=== PATIENT | male | born 1960 | race Caucasian/White ===

== ENCOUNTER 2022-08-16 13:34 | Emergency (ER) | payer MEDICARE, SELFPAY ==
[2022-08-16 13:35] VITALS: BP 166/97; PULSE 85; RESP 18; TEMP 36.7; O2SAT 99; BMI 26.3
--- NOTE | 2022-08-16 13:47 | XR_ITS ---
FINAL REPORT CLINICAL HISTORY: Left knee pain after a fall fall on 08/13 FINDINGS: LEFT KNEE Three views demonstrate no acute fracture or dislocation. Mild degenerative changes are seen. There is no joint effusion. IMPRESSION: Degenerative change with no acute bony abnormality. Reviewed, Interpreted and Dictated by Tesha Callahan MD Transcribed by Parris Levy Authenticated and [facility]
--- NOTE | 2022-08-16 14:05 | EXP.UTC ---
Discharge Plan Disposition Patient Disposition: Home, Self-Care Condition: Good Prescriptions Prescriptions: No Action gabapentin 600 mg tablet 300 mg PO TID metoprolol succinate 25 mg tablet extended release 24 hr 25 mg PO BID levothyroxine 25 mcg capsule PO buspirone 15 mg tablet 15 mg PO BID pantoprazole [Protonix] [address] for susp in packet 40 mg PO QAM potassium 99 mg tablet 10 meq PO QDAY warfarin [Coumadin] 5 mg tablet 2.5 mg PO QDAY warfarin [Coumadin] 5 mg tablet 5 mg PO QDAY folic acid 1 mg tablet PO 30 Days prednisolone 5 mg (21 tabs) tablets,dose pack PO Referrals Follow up/Referrals: Kamaljit Reese DO [Staff Physician] - See instructions Yeison Malcolm [Primary Care Provider] - See instructions Activity Restrictions/Add. Instructions Additional Instructions/Restrictions: Rest the extremity, Elevate the extremity as tolerated while you are resting. Follow up with Dr. Reese (orthopedics). I put in a referral but you need to call his office and schedule an appointment. Follow up with your regular doctor. GO TO THE ER FOR ANY WORSENING SYMPTOMS Clinical Impressions Clinical Impression: Contusion of knee, left Instructions Patient Instructions: Contusion, DI for Contusion Discharge ED Provider: Charly Beaulieu [facility] General Stated complaint: AO 08/13 fall, left knee pain Mode of Arrival: Ambulatory Source of Information: Patient Limitations: No Limitations Time Seen by Provider: 08/16/22 13:45 HEENT Symptoms (Recalled from RN notes): No Resp Symptoms (Recalled from RN notes): No Skin Symptoms (Recalled from RN notes): Yes MS Symptoms (Recalled from RN notes): Yes Functional Status (Recalled from RN notes): wnl History of Present Illness Provider Complaint: Patient states he fell on his porch 1 week ago and the swelling hasn't gone down. Related Data Home Medications Medication Instructions Recorded Confirmed buspirone 15 mg tablet 15 mg PO BID 03/31/17 gabapentin 600 mg tablet 300 mg PO TID 03/31/17 levothyroxine 25 mcg capsule PO 03/31/17 metoprolol succinate 25 mg 25 mg PO BID 03/31/17 tablet,extended release 24 hr pantoprazole 40 mg granules 40 mg PO QAM 03/31/17 delayed-release for susp in packet (Protonix) potassium 99 mg tablet 10 meq PO QDAY 03/31/17 warfarin 5 mg tablet (Coumadin) 2.5 mg PO QDAY 03/31/17 warfarin 5 mg tablet (Coumadin) 5 mg PO QDAY 03/31/17 folic acid 1 mg tablet PO 30 days 09/03/17 prednisolone 5 mg (21 tabs) mg PO 09/03/17 tablets in a dose pack Allergies Allergy/AdvReac Type Severity Reaction Status Date / Time From DEMEROL Allergy Unknown THROAT Uncoded 09/03/17 13:53 BURN, MOUTH BURN, UPSET STOMACH Worker's Comp Is this a Worker's Comp case?: No [facility] Disclaimer: The information contained in this section may have been updated after the patient was seen, as this information can be updated by other users. Social History Smoking Status: Former smoker alcohol intake: current substance use type: denies use current occupational status: employed Travel in the last 8 weeks: None ROS Obtained: Yes All systems reviewed & no additional complaints except as documented Constitutional Constitutional: Denies chills and Denies fever(s) Eyes Eyes: Denies eye discharge ENT Ears, Nose, Mouth, and Throat: Denies dizziness, Denies otalgia and Denies sore throat Cardiovascular Cardiovascular: Denies chest pain Respiratory Respiratory: Denies shortness of breath, Denies chest congestion, Denies cough, Denies stridor and Denies wheezing Gastrointestinal Gastrointestingal: Denies nausea or vomiting Musculoskeletal Musculoskeletal: Reports as per HPI Integumentary/Breasts Skin/Breast: Denies rash Neurologic Neurologic: Denies dizziness
[2022-08-16 14:55] VITALS: BP 166/97; PULSE 85; RESP 18; TEMP 36.7; O2SAT 99
== END 2022-08-16 14:56 | disposition home or self-care (01) ==
PROVIDERS: Emergency Provider Nurse Practitioner Family; PCP Internal Medicine
DX: S80.02XA Contusion of left knee, initial encounter (principal); Z87.891 Personal history of nicotine dependence; W17.89XA Other fall from one level to another, initial encounter
CPT/HCPCS: 73562; 99204; 99212; G0463

== ENCOUNTER 2023-11-23 22:18 | Emergency (ER) | payer MEDICARE, SELFPAY ==
--- NOTE | 2023-11-23 22:38 | CT_ITS ---
PROCEDURE INFORMATION: Exam: CT Head Without Contrast Exam date and time: 11/23/2023 11:05 PM Age: 62 years old Clinical indication: Injury or trauma; Fall; Blunt trauma (contusions or hematomas); Additional info: Fall, head injury TECHNIQUE: Imaging protocol: Computed tomography of the head without contrast. Radiation optimization: All CT scans at this facility use at least one of these dose optimization techniques: automated exposure control; mA and/or kV adjustment per patient size (includes targeted exams where dose is matched to clinical indication); or iterative reconstruction. COMPARISON: CT HEAD/BRAIN WO CON 11/23/2023 11:05 PM FINDINGS: Brain: There is age related atrophy. No hemorrhage. Unremarkable white matter. No mass effect. Cerebral ventricles: No ventriculomegaly. Paranasal sinuses: There is mucoperiosteal thickening involving both maxillary sinuses right greater than left. Moderate opacification of the ethmoid air cells. Mastoid air cells: Visualized mastoid air cells are well aerated. Orbital cavities: The orbital contents are symmetric and normal. Bones: Nasal bone fractures cannot be excluded secondary to the motion artifact. Soft tissues: There is a right supraorbital/right frontal scalp hematoma. Other findings: Motion degradation artifact is noted. IMPRESSION: 1. No acute intracranial abnormality. 2. Right supraorbital/frontal scalp hematoma.
--- NOTE | 2023-11-23 22:38 | CT_ITS ---
PROCEDURE INFORMATION: Exam: CT Cervical Spine Without Contrast Exam date and time: 11/23/2023 11:08 PM Age: 62 years old Clinical indication: Injury or trauma; Fall; Other: Pain; Additional info: Fall, injury TECHNIQUE: Imaging protocol: Computed tomography of the cervical spine without contrast. Radiation optimization: All CT scans at this facility use at least one of these dose optimization techniques: automated exposure control; mA and/or kV adjustment per patient size (includes targeted exams where dose is matched to clinical indication); or iterative reconstruction. COMPARISON: CT HEAD/BRAIN WO CON 11/23/2023 11:05 PM FINDINGS: Bones: No acute fracture. Normal alignment. Diffuse mild degenerative disc disease and [id number] facet arthropathy. No significant disc bulge or herniation. No severe spinal canal stenosis. No significant neural foraminal narrowing. Paranasal sinuses: There is moderate opacification of the ethmoid air cells. Mucoperiosteal thickening is noted within both maxillary sinuses right greater than left. Lungs: Lung apices are normal. Soft tissues: Unremarkable. IMPRESSION: No acute cervical spine fracture.
--- NOTE | 2023-11-23 22:40 | HMH.EDGENADL ---
Discharge Plan Disposition Patient Disposition: Home, Self-Care Condition: Good Prescriptions Prescriptions: No Action gabapentin 600 mg tablet 300 mg PO TID metoprolol succinate 25 mg tablet extended release 24 hr 25 mg PO BID levothyroxine 25 mcg capsule PO buspirone 15 mg tablet 15 mg PO BID pantoprazole [Protonix] [address] for susp in packet 40 mg PO QAM potassium 99 mg tablet 10 meq PO QDAY warfarin [Coumadin] 5 mg tablet 2.5 mg PO QDAY warfarin [Coumadin] 5 mg tablet 5 mg PO QDAY folic acid 1 mg tablet PO 30 Days prednisolone 5 mg (21 tabs) tablets,dose pack PO Referrals Follow up/Referrals: Yeison Malcolm [Primary Care Provider] - See instructions Activity Restrictions/Add. Instructions Additional Instructions/Restrictions: You were evaluated in the ER and are appropriate for discharge at this time. Take your home medications as previously prescribed. Drink plenty of water. Keep the wounds clean and dry, shower/bathe as normal. The stitch in your lip should be removed in 7 days. The stitches in your eyebrow will fall out on their own. Call your primary care doctor and follow-up with them on Sunday or Sunday for reevaluation, also discuss your INR with them. Your INR today is lower than expected, you may need a change in your warfarin dosing. Return to the ER with new, worsening, or otherwise concerning symptoms. Clinical Impressions Clinical Impression: Alcohol intoxication, Face lacerations, Laceration of lower lip, Anticoagulated Print Language Print Language: [place] Citizen Discharge ED Provider: Devin aHmm General Adult HPI <Devin Hamm MD - Last Filed: 11/23/23 23:20> General Chief complaint: Fall Stated complaint: AO 11/23/23 2100 Fell up steps,head injury Time Seen by Provider: 11/23/23 22:28 History of Present Illness HPI narrative: The patient is a 62-year-old man who was out drinking with his friends tonight got too intoxicated he does not know exactly how much he had a drink and he fell and hit his head and his lip. Has a laceration to his forehead and his lip. He is on Coumadin and is on this for a clotting condition. He lost his like for this and has had abdominal surgery as a result of these clots. Does not know what his most recent INR was. Does not have any other injuries other than to his head but he is very intoxicated and history is limited. Related Data Home Medications ?Medication ?Instructions ?Recorded ?Confirmed buspirone 15 mg tablet 15 mg PO BID 03/31/17 gabapentin 600 mg tablet 300 mg PO TID 03/31/17 levothyroxine 25 mcg capsule PO 03/31/17 metoprolol succinate 25 mg 25 mg PO BID 03/31/17 tablet,extended release 24 hr pantoprazole 40 mg granules 40 mg PO QAM 03/31/17 delayed-release for susp in packet (Protonix) potassium 99 mg tablet 10 meq PO QDAY 03/31/17 warfarin 5 mg tablet (Coumadin) 2.5 mg PO QDAY 03/31/17 warfarin 5 mg tablet (Coumadin) 5 mg PO QDAY 03/31/17 folic acid 1 mg tablet PO 30 days 09/03/17 prednisolone 5 mg (21 tabs) mg PO 09/03/17 tablets in a dose pack Allergies Allergy/AdvReac Type Severity Reaction Status Date / Time From DEMEROL Allergy Unknown THROAT Uncoded 09/03/17 13:53 BURN, MOUTH BURN, UPSET STOMACH PFSH <Devin Hamm MD - Last Filed: 11/23/23 23:20> [facility] Disclaimer: The information contained in this section may have been updated after the patient was seen, as this information can be updated by other users. Social History (Updated 08/17/22 @ 12:42 by Charly Beaulieu APRN) Smoking Status: Never smoker alcohol intake: current alcohol intake frequency: holidays/special occasions only substance use type: denies use current occupational status: employed Travel in the last 8 weeks: None <Devin Hamm MD - Last Filed: 11/23/23 23:20> ROS Obtained: Yes All systems reviewed & no additional complaints except as documented Physical Exam <Devin Hamm MD - Last Filed: 11/23/23 23:20> General General appearance: appears intoxicated Head Head exam: other (Periorbital ecchymosis on the left there is a 3 cm horizontally oriented laceration to the right forehead and a 2 cm laceration to the lower lip) Chest Chest inspection: Present normal inspection; Absent tenderness Respiratory Respiratory exam: Present normal lung sounds bilaterally and respiratory distress Cardiovascular Cardiovascular exam: Present regular rate and normal rhythm Abdominal Exam Abdominal exam: Present soft; Absent distention or tenderness Neurological Exam Neurological exam: Present alert and oriented X3 Medical Decision Making <Devin Hamm MD - Last Filed: 11/23/23 23:20> Robert Juarez Pt receiving controlled substance: No Vital Signs: 11/23/23 23:02 11/23/23 23:31 11/24/23 00:19 Temperature 97.6 F 98.3 F Temperature Source Oral Oral Pulse Rate 83 83 Pulse Rate [Right] 91 H Respiratory Rate 20 16 Blood Pressure 170/109 H 170/109 H Blood Pressure [Right Arm] 156/93 H Blood Pressure Mean 129 Blood Pressure Mean [Right Arm] 114 Blood Pressure Source Automatic Cuff Blood Pressure Position Sitting 02 Sat by Pulse Oximetry 98 97 Oxygen Delivery Method Room Air Room Air Lab Data Lab Results 11/23/23 22:59: WBC 6.2, RBC 4.60, Hgb 15.8, Hct 49.3, MCV 107.2 H, MCH 34.3 H, MCHC 32.0, RDW 13.2, Plt Count 155, MPV 7.9, Neut % (Auto) 64.5, Lymph % (Auto) 23.4, Wake % (Auto) 6.8, Eos % (Auto) 4.2, Baso % (Auto) 1.0, Neut # (Auto) 4.0, Lymph # (Auto) 1.5, Wake # (Auto) 0.4, Eos # (Auto) 0.3, Baso # (Auto) 0.1, PT 14.3 H, INR 1.31 H, Sodium 131 L, Potassium 3.9, Chloride 98, Carbon Dioxide 22, Anion Gap 14.9, BUN 4 L, Creatinine 0.60 L, Estimated Creat Clear 93, Estimated GFR 137, Est GFR ( Amer) 165, Glucose 117 H, Calcium 8.5, Total Bilirubin 0.8, AST 70 H, ALT 34, Alkaline Phosphatase 111, Total Protein 8.0, Albumin 4.6, Globulin 3.4 H, Albumin/Globulin Ratio 1.4, Plasma/Serum Alcohol 341 H 11/23/23 22:59 11/23/23 22:59 Orders (Tests/Meds): ED MEDICATIONS Discontinued Medications Generic Name Dose Route Start Last Admin Trade Name Freq PRN Reason Stop Dose Admin Lidocaine HCl 10 ml 11/23/23 23:04 11/23/23 23:26 Lidocaine 1% 10ml Mdv SQ 11/23/23 23:05 10 ml ONCE ONE Administration Tetanus/Reduced Diphtheria/Acell Pertussis 0.5 ml 11/23/23 22:38 11/23/23 23:13 Tet/Diphth/Pert-Adult 0.5ml Syringe IM 11/23/23 22:39 0.5 ml .ONCE ONE Administration ORDERS Category Date Time Status CT cervical spine wo con Stat Cat Scan 11/23/23 22:[address] head/brain wo con Stat Cat Scan 11/23/23 22:38 Completed CBC w/Auto Diff [Complete Blood Count Auto Diff] Stat Lab 11/23/23 22:59 Completed CMP [Comprehensive Metabolic Panel] Stat Lab 11/23/23 22:59 Completed Ethanol [Ethyl Alcohol] Stat Lab 11/23/23 22:59 Completed PT INR [Prothrombin Time INR] Stat Lab 11/23/23 22:59 Completed Medical Decision Narrative: Intoxicated 62-year-old male presenting today after a fall injury to his forehead and his lower lip. This will need to be repaired from the laceration standpoint. Given the fact he is anticoagulated and intoxicated we will get a CT scan of his head and cervical spine but also will need to be observed until his exam is normal for a neurologic standpoint to make sure were not missing any significant injuries as his history and physical was significant limited due to his intoxicated status at the moment. Tetanus will be updated. Care transition to Dr. Fidelina Wood at 11 PM pending laceration repair as CT scans labs reassessment and final disposition. <Jaciel Wood MD - Last Filed: 11/24/23 00:28> Vital Signs: 11/23/23 23:02 11/23/23 23:31 11/24/23 00:19 Temperature 97.6 F 98.3 F Temperature Source Oral Oral Pulse Rate 83 83 Pulse Rate [Right] 91 H Respiratory Rate 20 16 Blood Pressure 170/109 H 170/109 H Blood Pressure [Right Arm] 156/93 H Blood Pressure Mean 129 Blood Pressure Mean [Right Arm] 114 Blood Pressure Source Automatic Cuff Blood Pressure Position Sitting 02 Sat by Pulse Oximetry 98 97 Oxygen Delivery Method Room Air Room Air Lab Data Lab Results 11/23/23 22:59: WBC 6.2, RBC 4.60, Hgb 15.8, Hct 49.3, MCV 107.2 H, MCH 34.3 H, MCHC 32.0, RDW 13.2, Plt Count 155, MPV 7.9, Neut % (Auto) 64.5, Lymph % (Auto) 23.4, Wake % (Auto) 6.8, Eos % (Auto) 4.2, Baso % (Auto) 1.0, Neut # (Auto) 4.0, Lymph # (Auto) 1.5, Wake # (Auto) 0.4, Eos # (Auto) 0.3, Baso # (Auto) 0.1, PT 14.3 H, INR 1.31 H, Sodium 131 L, Potassium 3.9, Chloride 98, Carbon Dioxide 22, Anion Gap 14.9, BUN 4 L, Creatinine 0.60 L, Estimated Creat Clear 93, Estimated GFR 137, Est GFR ( Amer) 165, Glucose 117 H, Calcium 8.5, Total Bilirubin 0.8, AST 70 H, ALT 34, Alkaline Phosphatase 111, Total Protein 8.0, Albumin 4.6, Globulin 3.4 H, Albumin/Globulin Ratio 1.4, Plasma/Serum Alcohol 341 H Orders (Tests/Meds): ED MEDICATIONS Discontinued Medications Generic Name Dose Route Start Last Admin Trade Name Freq PRN Reason Stop Dose Admin Lidocaine HCl 10 ml 11/23/23 23:04 11/23/23 23:26 Lidocaine 1% 10ml Mdv SQ 11/23/23 23:05 10 ml ONCE ONE Administration Tetanus/Reduced Diphtheria/Acell Pertussis 0.5 ml 11/23/23 22:38 11/23/23 23:13 Tet/Diphth/Pert-Adult 0.5ml Syringe IM 11/23/23 22:39 0.5 ml .ONCE ONE Administration ORDERS Category Date Time Status CT cervical spine wo con Stat Cat Scan 11/23/23 22:[address] head/brain wo con Stat Cat Scan 11/23/23 22:38 Completed CBC w/Auto Diff [Complete Blood Count Auto Diff] Stat Lab 11/23/23 22:59 Completed CMP [Comprehensive Metabolic Panel] Stat Lab 11/23/23 22:59 Completed Ethanol [Ethyl Alcohol] Stat Lab 11/23/23 22:59 Completed PT INR [Prothrombin Time INR] Stat Lab 11/23/23 22:59 Completed Medical Decision Narrative: Intoxicated 62-year-old male presenting today after a fall injury to his forehead and his lower lip. This will need to be repaired from the laceration standpoint. Given the fact he is anticoagulated and intoxicated we will get a CT scan of his head and cervical spine but also will need to be observed until his exam is normal for a neurologic standpoint to make sure were not missing any significant injuries as his history and physical was significant limited due to his intoxicated status at the moment. Tetanus will be updated. Care transition to Dr. Fidelina Wood at 11 PM pending laceration repair as CT scans labs reassessment and final disposition. Wood: Upon my assumption of care patient is stable, neurologically intact, I agree with the assessment and plan from Dr. Hamm. I repaired the right eyebrow and lower lip lacerations, see procedure note for details. I personally interpreted head CT and CT cervical spine do not appreciate acute traumatic injury, see radiology reads for final interpretations. On reassessment patient continues to be stable, he is clinically sober, ambulated independently and safely in the ER, vitals remained stable. Workup is reassuring so he is appropriate for discharge at this time. Patient was given instructions on symptomatic management, wound care, follow up instructions, and return precautions for the emergency department. Patient indicated understanding and was discharged in stable condition. Procedures <Jaciel Wood MD - Last Filed: 11/24/23 00:28> Risk/Benefits of Procedure(s) Were Explained: Yes Laceration Laceration 1: Site: face Side (If applicable): right Size (cm): 2 Description: irregular (At superior edge of right eyebrow) and other (With underlying hematoma) Depth: simple, single layer Local Anesthetic: lidocaine 1% Amount of anesthesia used (mL): 3 Pre-repair: wound explored and irrigated extensively (hematoma evaucated) Skin layer closed with: other (fast gut) Size (cm): 5-0 Number of sutures: 5 Technique: simple, interrupted Laceration 2: Site: lip (Laceration on the mucosal surface of the lower lip vertically oriented at the midline, does not involve vermilion border) Size (cm): 1.5 Description: linear Depth: simple, single layer Local Anesthetic: lidocaine 1% Amount of anesthesia used (mL): 2 Pre-repair: irrigated extensively Skin layer closed with: vicryl Size (cm): 5-0 Number of sutures: 1 Technique: running (running locked) Critical Care <Devin Hamm MD - Last Filed: 11/23/23 23:20> Critical Care Time Critical Care Time: No
[2023-11-23 23:02] VITALS: BP 156/93; PULSE 91; RESP 20; TEMP 36.4; O2SAT 98; BMI 25.0
[2023-11-23 23:07] LABS: Basophils # 0.1 K/mm3 (0-0.2); Eosinophils # 0.3 K/mm3 (0.0-0.4); Eosinophils % 4.2 % (0.1-12.0); Hematocrit 49.3 % (42.0-52.0); Hemoglobin 15.8 g/dL (14.1-18.0); Lymphocytes # 1.5 K/mm3 (0.7-4.5); Lymphocytes % 23.4 % (10-50); Mean Corpuscular Hemoglobin 34.3 pg (27.0-31.2); Mean Corpuscular Volume 107.2 fl (80-94); Mean Platelet Volume 7.9 fl (7.4-10.4); Monocytes # 0.4 K/mm3 (0.1-1.0); Monocytes % 6.8 % (1.7-9.3); Neutrophils % 64.5 % (37.0-80.0); Platelet Count 155 K/mm3 (142-424); Red Cell Distribution Width 13.2 % (11.5-17.5); White Blood Count 6.2 K/mm3 (4.8-10.8)
[2023-11-23] MEDS: TET/DIPHTH/PERT-ADULT 0.5ML SYRINGE 0.5 ML IM (23:13)
[2023-11-23 23:24] LABS: Albumin Level 4.6 g/dl (3.5-5.0); Chloride 98 mmol/L (98-107); Potassium 3.9 mmoL/L (3.5-5.1); Sodium 131 mmol/L (136-145)
[2023-11-23] MEDS: LIDOCAINE 1% 10ML MDV 10 ML SQ (23:26)
[2023-11-23 23:27] LABS: Alanine Aminotransferase 34 U/L (12-78); Albumin/Globulin Ratio 1.4 (1.1-1.8); Alkaline Phosphatase 111 U/L (38-126); Anion Gap 14.9 mEq/L (5-15); Aspartate Amino Transferase 70 U/L (17-59); Bilirubin,Total 0.8 mg/dl (0.2-1.3); Blood Urea Nitrogen 4 mg/dl (9-20); Carbon Dioxide 22 mmol/L (22.0-30.0); Creatinine Clearance Estimated 93 mL/min (50-200); Estimated Glomerular Filt Rate 137 ml/min (>60); GFR (African American) 165 ML/MIN (>60); Globulin 3.4 g/dL (1.3-3.2)
[2023-11-23 23:28] LABS: Calcium 8.5 mg/dl (8.4-10.2); Glucose 117 mg/dl (74-100); INR 1.31 (0.9-1.1); Prothrombin Time 14.3 seconds (10.1-12.5)
[2023-11-23 23:31] VITALS: BP 170/109; PULSE 83; O2SAT 97
[2023-11-23 23:37] LABS: Ethyl Alcohol 341 mg/dl (0-10)
[2023-11-24 00:19] VITALS: BP 170/109; PULSE 83; RESP 16; TEMP 36.8; O2SAT 99
== END 2023-11-24 00:23 | disposition home or self-care (01) ==
PROVIDERS: Emergency Provider Student in an Organized Health Care Education/Training Program; PCP Internal Medicine
DX: F10.929 Alcohol use, unspecified with intoxication, unspecified (principal); E87.1 Hypo-osmolality and hyponatremia; S01.81XA Laceration without foreign body of other part of head, initial encounter; S01.511A Laceration without foreign body of lip, initial encounter; Z79.01 Long term (current) use of anticoagulants; W19.XXXA Unspecified fall, initial encounter; Z23 Encounter for immunization; Y90.8 Blood alcohol level of 240 mg/100 ml or more
CPT/HCPCS: 12013; 70450; 72125; 80053; 80320; 85025; 85610; 90471; 90715; 99285; G0480